=== PATIENT | male | born 1980 | race Two or more races ===

== ENCOUNTER 2020-11-08 22:35 | Emergency (ER) | payer SELFPAY ==
[~2020-11-08] VITALS: Ht 177.8 cm; Wt 95.3 kg
[2020-11-08 22:44] VITALS: BP 150/88
[2020-11-08] MEDS ORDERED: IBUP-1957 PO (23:00)
[2020-11-08] MEDS ORDERED: AMOX-430 PO (23:00)
== END 2020-11-08 23:22 | disposition home or self-care (01) ==
LOC: ER 22:35
DX: K08.89 Other specified disorders of teeth and supporting structures (principal)